=== PATIENT | male | born 1950 | race Caucasian/White ===

== ENCOUNTER 2017-09-30 12:58 | Emergency (ER) | payer OTHER, MEDICARE ==
[2017-09-30 13:09] VITALS: BP 157/84; BMI 37.4
--- NOTE | 2017-09-30 13:40 | DR.GENAD ---
HPI - PCP Primary Care Physician: ADOLPH WICK - Complaint/Symptoms Chief Complaint Doctors Comments: symptoms present about 1 week, red area left inguinal crease. Started after using riding mower. Has been using abx salve and bathing it in bleach Chief Complaint:: PT THINKS HE HAS A STAPH INFECTION IN HIS GROIN. - Source History Provided: Patient - Mode of Arrival Mode of Arrival: Ambulatory - Timing Onset of Chief Complaint: 09/23/17 PMH - PMH Past Medical History: Yes Past Medical History: Arthritis, COPD, Coronary Artery Disease, Kidney Stones Past Medical History Comment: A-FIB. CHRONIC LEUKEMIA. CABG Past Surgical History: Yes Surgical History: CABG/Valve Surgery, Other Past Surgical History Comment: KNEE SURGERY - Family History History of Family Medical Conditions: Yes Family Medical History: Diabetes Mellitus, Cancer, [place], Coronary Artery Disease, Heart Failure, Sudden Cardiac , Hypertension - Social History Does patient currently use any type of tobacco product: Yes Have you used tobacco products in the last 12 months: Yes Type of Tobacco Use: Cigarettes How many years tobacco product used: 50 Alcohol Use: None Do you use any recreational Drugs:: No Lives With: Alone Lives Where: Home - infectious screening In the last 2 months have you had wt loss of >10#?: NO Have you had fever, night sweats or hemotysis?: No Have you traveled outside the country in the last 6 months?: No Isolation: Standard ROS - Review of Systems Constitutional: See HPI Eyes: No Symptoms Reported ENTM: No Symptoms Reported Respiratoy: No Symptoms Reported Cardiovascular: No Symptoms Reported Gastrointestinal/Abdominal: No Symptoms Reported Genitourinary: No Symptoms Reported Neurological: No Symptoms Reported Musculoskeletal: No Symptoms Reported Integumentary: Rash, Itching Hematologic/Lymphatic: No Symptoms Reported Endocrine: No Symptoms Reported Psychiatric: No Symptoms Reported All Other Systems: Reviewed and Negative PE - Vital Signs Vitals: Temperature 98.6 F Pulse Rate 88 Respiratory Rate 20 Blood Pressure 157/84 O2 Sat by Pulse Oximetry 93 - General Limitations: No Limitations General Appearance: Alert, In No Apparent Distress - Head Head Exam: Normal Inspection - Eyes Eye exam: Normal Appearance - ENT ENT Exam: Normal Exam - Neck Neck Exam: Normal Inspection, Full ROM, Trachea Midline - Chest Chest Inspection: Normal Inspection - Respiratory Respiratory Exam: Normal Lung Sounds Bilat, Accessory Muscle Use Respiratory Exam: Bilateral Clear to Auscultation - Cardiovascular Cardiovascular Exam: Regular Rate, Normal Rhythm - Abdominal Exam Abdominal Exam: Normal Inspection, Normal Bowel Sounds, Soft - Neurologic Neurological Exam: Alert, Oriented X3 - Psychiatric Psychiatric Exam: Normal Affect, Normal Mood - Skin Skin Exam: Rash, Other (Macular reddened area 1x4cm in left inguinal crease. No abscess. ) - Diagnosis Discharge Problem: Rash and nonspecific skin eruption - Discharge Plan Disposition: 01 HOME, SELF-CARE Condition: Stable Prescriptions: Doxycycline Hyclate 100 mg PO BID #20 tab Nystatin (Topical) [[place]STATIN TOP CRM *] 1 applic EX BID #15 gm - Follow ups/Referrals Follow ups/Referrals: ADOLPH WICK [Primary Care Provider] - 3 days - Instructions Additional Notes - Additional Notes Additional Notes: will treat as cellulitic infection as well as yeast
== END 2017-09-30 14:06 | disposition home or self-care (01) ==
LOC: ER 13:16
DX: R21 Rash and other nonspecific skin eruption (principal)
CPT/HCPCS: 99281; 99282